=== PATIENT | male | born 1975 | race Hispanic/Latino ===

== ENCOUNTER 2016-11-24 01:15 | Emergency (ER) | payer SELFPAY ==
[2016-11-24] MEDS ORDERED: FLEXERIL PO ONE (02:35)
[2016-11-24] MEDS ORDERED: NORCO 7.5/325 PO ONE (02:35)
[2016-11-24 03:29] LABS: Hematocrit 39.8 % (35.5-45.6); Hemoglobin 13.7 gm/dl (11.8-15.2); Mean Corpuscular HGB Conc 35 % (32-34); Mean Corpuscular Hemoglobin 29 pg (28-32); Mean Corpuscular Volume 85 fl (84-94); Platelet Count 224 K/mm3 (140-440); Red Blood Count 4.67 M/mm3 (3.65-5.03); Red Cell Distribution Width 13.9 % (13.2-15.2); White Blood Count 16.9 K/mm3 (4.5-11.0)
[2016-11-24 03:33] LABS: Bilirubin,Urine NEG (Negative); Blood,Urine LG (Negative); Ketones,Urine NEG (Negative); Leukocyte Esterase,Urine NEG (Negative); Mucus,Urine 3+ /HPF; Nitrite,Urine NEG (Negative); Urobilinogen,Urine < 2.0 mg/dL (<2.0)
[2016-11-24 04:07] LABS: Alanine Aminotransferase 22 units/L (7-56); Albumin/Globulin Ratio 1.2 %; Alkaline Phosphatase 86 units/L (35-129); Anion Gap 20 mmol/L; BUN/Creatinine Ratio 14.54; Blood Urea Nitrogen 16 mg/dL (9-20); Calcium 9.4 mg/dL (8.4-10.2); Carbon Dioxide 23 mmol/L (22-30); Chloride 98.8 mmol/L (98-107); Glucose 116 mg/dL (75-100); Lipase 29 units/L (13-60); Potassium 3.7 mmol/L (3.6-5.0); Sodium 138 mmol/L (137-145); Total Protein 7.4 g/dL (6.3-8.2)
[2016-11-24 04:09] LABS: Bilirubin,Direct < 0.2 mg/dL (0-0.2)
--- NOTE | 2016-11-24 04:37 | Cat Scan Report ---
FINAL REPORT PROCEDURE: CT ABDOMEN PELVIS WO CON TECHNIQUE: Computerized axial tomography of the abdomen and pelvis was performed without intravenous contrast. This study is performed without intravascular contrast material and its sensitivity for abdominal and pelvic pathology, including neoplasms, inflammation, abscess, free fluid, thrombosis, arterial dissection and infarction, is reduced compared with a contrast enhanced study. HISTORY: flank pain COMPARISON: No prior studies are available for comparison. FINDINGS: Visualized lower thorax: No significant abnormality. Liver: Normal size and attenuation. Spleen: Normal size and attenuation. Gallbladder and biliary system: Normal. Pancreas: Normal. Adrenals: Normal. Kidneys: There is a 3 millimeter stone in the proximal right ureter causing moderate right hydronephrosis. Left kidney is unremarkable.. GI tract: There is no bowel obstruction, colitis or enteritis. The appendix is normal.. Lymph nodes and mesentery: Normal. Vasculature: Normal. Bladder: Normal. Reproductive organs: Normal. Peritoneum: There is no ascites or free air, abscess or adenopathy.. Musculoskeletal structures: No significant abnormality. Other: There are bilateral inguinal hernia defects containing fat only.. IMPRESSION: There is a 3 millimeter stone in the proximal right ureter causing moderate right hydronephrosis. Left kidney is unremarkable.. There is no bowel obstruction, colitis or enteritis. The appendix is normal.. There is no ascites or free air, abscess or adenopathy.. There are bilateral inguinal hernia defects containing fat only.. .
[2016-11-24] MEDS ORDERED: ROCEPHIN/NS 1 GM/50 ML 1 GM/50 ML BAG IV ONE (04:54)
[2016-11-24] MEDS ORDERED: NACL 0.9% 1000 ML 1,000 ML IV ONE (04:54)
--- NOTE | 2016-11-24 05:35 | Emergency Department Report ---
ED Abdominal Pain HPI - General Chief Complaint: Abdominal Pain Stated Complaint: RIGHT FLANK PAIN Source: patient Mode of arrival: Ambulatory Limitations: No Limitations - History of Present Illness Initial Comments: 41 year old male presents to ED with right sided flank pain x2 days. patient states he had one episode of hematuria a couple weeks ago. patient denies N/V, chest pain, dysuria. patient is stable, neurologically intact and in no acute distress. MD Complaint: flank pain -: Sudden, days(s) (2) Location: R flank Radiation: R flank Migration to: R flank Severity: moderate Severity scale (0 -10): 6 Quality: sharp Consistency: constant Improves With: nothing Associated Symptoms: hematuria. denies: nausea, vomiting, diarrhea, fever, chills, constipation, dysuria - Related Data Previous Rx's Medication Instructions Recorded Last Taken Type HYDROcodone/APAP 7.5-325 [[place] 1 each PO Q8HR PRN #15 tablet 11/24/16 Unknown Rx 7.5/325] Ibuprofen [Motrin] 800 mg PO Q8HR PRN #15 tablet 11/24/16 Unknown Rx Tamsulosin [Flomax] 0.4 mg PO QDAY #7 cap 11/24/16 Unknown Rx Allergies Allergy/AdvReac Type Severity Reaction Status Date / Time No Known Allergies Allergy Unverified 11/24/16 01:29 ED Review of Systems ROS: Stated complaint: RIGHT FLANK PAIN Other details as noted in HPI Constitutional: denies: chills, fever Eyes: denies: eye pain, eye discharge, vision change ENT: denies: ear pain, throat pain Respiratory: denies: cough, shortness of breath, wheezing Cardiovascular: denies: chest pain, palpitations Endocrine: no symptoms reported Gastrointestinal: abdominal pain (right flank pain). denies: nausea, diarrhea Genitourinary: hematuria. denies: urgency, dysuria Musculoskeletal: denies: back pain, joint swelling, arthralgia Skin: denies: rash, lesions Neurological: denies: headache, weakness, paresthesias Psychiatric: denies: anxiety, depression Hematological/Lymphatic: denies: easy bleeding, easy bruising ED Past Medical Hx - Past Medical History Hx Psychiatric Treatment: Yes Additional medical history: hpb - Surgical History Past Surgical History?: No - Social History Smoking Status: Never Smoker Substance Use Type: None - Medications Home Medications: Home Medications Medication Instructions Recorded Confirmed Last Taken Type HYDROcodone/APAP 7.5-325 [[place] 1 each PO Q8HR PRN #15 tablet 11/24/16 Unknown Rx 7.5/325] Ibuprofen [Motrin] 800 mg PO Q8HR PRN #15 tablet 11/24/16 Unknown Rx Tamsulosin [Flomax] 0.4 mg PO QDAY #7 cap 11/24/16 Unknown Rx ED Physical Exam - General Limitations: No Limitations General appearance: alert, in no apparent distress - Head Head exam: Present: atraumatic, normocephalic - Eye Eye exam: Present: normal appearance - ENT ENT exam: Present: mucous membranes moist - Neck Neck exam: Present: normal inspection - Respiratory Respiratory exam: Present: normal lung sounds bilaterally. Absent: respiratory distress, wheezes, rales, rhonchi - Cardiovascular Cardiovascular Exam: Present: regular rate, normal rhythm. Absent: systolic murmur, diastolic murmur, rubs, gallop - GI/Abdominal GI/Abdominal exam: Present: soft, normal bowel sounds. Absent: distended, tenderness, guarding, rebound - Rectal Rectal exam: Present: deferred - Extremities Exam Extremities exam: Present: normal inspection - Back Exam Back exam: Present: normal inspection, CVA tenderness (R) - Neurological Exam Neurological exam: Present: alert, oriented X3, normal gait - Psychiatric Psychiatric exam: Present: normal affect, normal mood - Skin Skin exam: Present: warm, dry, intact, normal color. Absent: rash ED Course Vital Signs 11/24/16 11/24/16 01:26 06:20 Temperature 97.6 F 98 F Pulse Rate 70 76 Respiratory 18 Rate Blood Pressure 169/93 Blood Pressure 116/79 [Left] O2 Sat by Pulse 100 Oximetry ED Medical Decision Making - Lab Data Result diagrams: 11/24/16 02:51 11/24/16 02:51 Labs 11/24/16 11/24/16 11/24/16 02:48 02:51 02:51 WBC 16.9 H RBC 4.67 Hgb 13.7 Hct 39.8 MCV 85 MCH 29 MCHC 35 H RDW 13.9 Plt Count 224 Sodium 138 Potassium 3.7 Chloride 98.8 Carbon Dioxide 23 Anion Gap 20 BUN 16 Creatinine 1.1 Estimated GFR > 60 BUN/Creatinine Ratio 14.54 Glucose 116 H Calcium 9.4 Total Bilirubin 0.20 Direct Bilirubin < 0.2 Indirect Bilirubin 0.0 AST 20 ALT 22 Alkaline Phosphatase 86 Total Protein 7.4 Albumin 4.0 Albumin/Globulin Ratio 1.2 Lipase 29 Urine Color Yellow Urine Turbidity Clear Urine pH 5.0 Ur Specific [place] 1.027 Urine Protein 30 mg/dl Urine Glucose (UA) 50 Urine Ketones Neg Urine Blood Lg Urine Nitrite Neg Urine Bilirubin Neg Urine Urobilinogen < 2.0 Ur Leukocyte Esterase Neg Urine WBC (Auto) 2.0 Urine RBC (Auto) 94.0 U Epithel Cells (Auto) 3.0 Calcium Oxalate Crystal 1+ Hyaline Casts 3 Urine Mucus 3+ - Radiology Data Radiology results: report reviewed CT abdomen/pelvis wo 3mm stone present in proximal right ureter with moderate hydronephrosis. left kidney unremarkable. - Medical Decision Making 41 year old male presents to ED with right flank pain x2 days. patient has controlled pain and no vomiting at time of discharge. patient has no signs of UTI in urine specimen and normal kidney function. patient is stable, neurologically intact and in no acute distress. patient has recieved 1L of normal saline and will be discharged with PO pain meds and flomax. patient agrees and understands to follow up with urology within 2-3 days. Critical care attestation.: If time is entered above; I have spent that time in minutes in the direct care of this critically ill patient, excluding procedure time. ED Disposition Clinical Impression: Ureteral stone with hydronephrosis Disposition: - TO HOME OR SELFCARE Is pt being admited?: No Does the pt Need Aspirin: No Condition: Stable Instructions: Kidney Stones (ED) Prescriptions: HYDROcodone/APAP 7.5-325 [[place] 7.5/325] 1 each PO Q8HR PRN #15 tablet PRN Reason: Pain Ibuprofen [Motrin] 800 mg PO Q8HR PRN #15 tablet PRN Reason: Pain Tamsulosin [Flomax] 0.4 mg PO QDAY #7 cap Referrals: PRIMARY CARE, [Primary Care Provider] - 2-3 Days VALDEMAR URRUTIA MD [Staff Physician] - 2-3 Days FAUSTO ABRAHAM MD [Staff Physician] - 2-3 Days PHILIP COTE MD [Staff Physician] - 2-3 Days
[2016-11-24 06:21] VITALS: BP 116/79
== END 2016-11-24 06:23 | disposition home or self-care (01) ==
LOC: ED 01:15
DX: N13.2 Hydronephrosis with renal and ureteral calculous obstruction (principal)
CPT/HCPCS: 36415; 74176; 80048; 80074; 81001; 83690; 85027; 96360; 99284; J7030